=== PATIENT | female | born 1960 | race Caucasian/White ===

== ENCOUNTER 2017-09-26 07:11 | Emergency (ER) | payer SELFPAY ==
[2017-09-26 07:26] VITALS: BP 109/70
--- NOTE | 2017-09-26 07:35 | ED Physician Documentation ---
GI Bleed - HISTORIAN Historian: patient - HPI Stated Complaint: Fever/Aches Chief Complaint: Fever Additional Information: fever to 101 diarrhea onset 2 days ago cough just dont feel good Onset: days ago (2) Timing: gradual onset, still present, worse Severity: mild, moderate - Associated Symptoms Description of Stools: diarrhea Abdominal Pain: mild - ROS CONST: fever, chills CVS/RESP: denies: chest pain, shortness of breath EYES/ENT: denies: problems with vision, sore throat MS: none NEURO/PSYCH: denies: headache (ca thryoid) - PAST HX Past History: other (ca thryoid) Surgeries/Procedures: other (thryoid) Allergies/Adverse Reactions: Allergies Allergy/AdvReac Type Severity Reaction Status Date / Time No Known Allergies Allergy Verified 09/26/17 07:26 - SOCIAL HX Smoking History: less than 1 pack/day Alcohol Use: none Drug Use: none - FAMILY HX Family History: none - VITAL SIGNS Vital Signs: Vital Signs Temp Pulse Resp BP Pulse Ox 100.2 F H 103 H 16 109/70 96 09/26/17 07:20 09/26/17 07:20 09/26/17 07:20 09/26/17 07:20 09/26/17 07:20 - REVIEWED ASSESSMENTS Nursing Assessment Reviewed: Yes Vitals Reviewed: Yes ED Results Lab/Radiology - Lab Results Lab Results: Lab Results 09/26/17 09/26/17 09/26/17 08:15 08:05 08:05 WBC 2.20 K/ul L K/ul (4.00-12.00) RBC 4.18 M/ul M/ul (3.90-5.20) Hgb 13.5 g/dL g/dL (12.0-16.0) Hct 39.1 % % (34.5-46.5) MCV 93.5 fl fl (80.0-100.0) MCH 32.3 pg pg (28.0-34.0) MCHC 34.5 g/dL g/dL (30.0-36.0) RDW 13.7 % % (11.3-14.3) Plt Count 52 K/mm3 L K/mm3 (130-400) Seg Neutrophils % 39 % % (39-79) Band Neutrophils % 36 % H % (0-12) Lymphocytes % 15 % L % (16-50) Monocytes % 9 % % (0-11) Eosinophils % 0 % % (0-7) Basophils % 0 % % (0-2) Metamyelocytes % 0 % % (0-0) Myelocytes % 0 % % (0-0) Nucleated RBCs 2 % H % (0-0) Reactive Lymphocytes 1 % % (0-5) Sodium 135 mmol/L L mmol/L (136-145) Potassium 4.0 mmol/L mmol/L (3.5-5.1) Chloride 102 mmol/L mmol/L (98-107) Carbon Dioxide 24 mmol/L mmol/L (22-30) BUN 12 mg/dL mg/dL (7-17) Creatinine 0.80 mg/dL mg/dL (0.52-1.04) Estimated Creat Clear 59 Est GFR ( Amer) > 60 (60 - ) Est GFR (Non-Af Amer) > 60 (60 - ) Glucose 105 mg/dL mg/dL (74-106) Calcium 8.9 mg/dL mg/dL (8.4-10.2) Total Bilirubin 0.5 mg/dL mg/dL (0.2-1.3) AST 123 U/L H U/L (15-46) ALT 120 U/L H U/L (13-69) Alkaline Phosphatase 155 U/L H U/L (38-126) Total Protein 7.0 g/dL g/dL (6.3-8.2) Albumin 4.2 g/dL g/dL (3.5-5.0) Lipase 92 U/L U/L (23-300) Urine Color Yue (YELLOW) Urine Appearance Clear (CLEAR) Urine pH 6.0 (5.0 - 8.0) Ur Specific [place] >=1.030 H (1.010-1.030) Urine Protein 2+ mg/dL H mg/dL (NEGATIVE) Urine Ketones Negative mg/dL mg/dL (NEGATIVE) Urine Occult Blood 3+ H (NEGATIVE) Urine Nitrite Negative (NEGATIVE) Urine Bilirubin 1+ H (NEGATIVE) Urine Urobilinogen 1.0 Eu Eu (0.2-1.0) Ur Leukocyte Esterase Negative (NEGATIVE) Urine Glucose Negative mg/dL mg/dL (NEGATIVE) - Orders Orders: ED Orders Category Date Time Status Place IV Lock 1T Care 06/07/18 07:38 Active ABD SERIES PA CHEST [RAD] Stat Exams 09/26/17 Ordered CBC/PLATELET/DIFF Routine Lab 09/26/17 08:05 Completed CMP Routine Lab 09/26/17 08:05 Completed HEPATITIS PANEL-COMP I Stat Lab 09/26/17 07:38 Received LIPASE Routine Lab 09/26/17 08:05 Completed RBC/PLATELET MORPHOLOGY Routine Lab 09/26/17 08:05 Completed UA MACRO DIP ONLY Routine Lab 09/26/17 08:15 Completed 0.9 % Sodium Chloride [Normal Saline] 1,000 ml Med 09/26/17 07:38 Discontinued IV Q1H Chem Sticks Med 09/26/17 10:00 Discontinued 1 each MC CHEMQ Abdominal Pain Physical Exam - Physical Exam General Appearance: mild distress, anxious EENT: eye inspection normal NECK: normal inspection RESPIRATORY: no resp distress, chest non-tender, breath sounds normal CVS: reg rate & rhythm, heart sounds normal ABDOMEN: soft, non-tender SKIN: warm/dry. No: cyanosis, diaphoresis, jaundice, mottled EXTREMITIES: non-tender, normal range of motion, no edema NEURO: oriented X3, motor nml, sensation nml, mood/affect nml Vital Signs: Vital Signs Temp Pulse Resp BP Pulse Ox 100.2 F H 103 H 16 109/70 96 09/26/17 07:20 09/26/17 07:20 09/26/17 07:20 09/26/17 07:20 09/26/17 07:20 Discharge Clincal Impression: vital gastroenteritis Referrals: Laney Witt, OIL RECOVERY OPERATOR [NURSE PRACTITIONER] - 2 Days Comments: pt ate feels better no nausea now will home rest bal nutrition f/u w/pcp or rt ed prn Condition: Good Disposition: 01 HOME, SELF-CARE Decision to Admit: NO Decision Time: 11:08
[2017-09-26] MEDS ORDERED: 0.9 % SODIUM CHLORIDE 1,000 ML IV ONE (07:38)
[2017-09-26 08:16] LABS: MEAN CORPUSCULAR HEMOGLOBIN 32.3 pg (28.0-34.0); MEAN CORPUSCULAR VOLUME 93.5 fl (80.0-100.0)
[2017-09-26 08:30] LABS: eGFR (African) > 60; eGFR (Non-African) > 60
[2017-09-26 08:53] LABS: BASOPHILS % 0 % (0-2); EOSINOPHILS % 0 % (0-7); MONOCYTES % 9 % (0-11); SEGMENTED NEUTROPHILS % 39 % (39-79)
[2017-09-26 10:31] LABS: APPEARANCE,URINE CLEAR (CLEAR); COLOR,URINE AMBER (YELLOW); OCCULT BLOOD,URINE 3+ (NEGATIVE)
--- NOTE | 2017-09-26 22:53 | Diagnostic Imaging Report ---
[facility] [address] [facility].[address] [id number] Report Submission Date: Sep 26, 2017 8:33:01 AM CDT Patient Study Name: NIDIA UMANA Date: Sep 26, 2017 8:10:06 AM CDT Modality Type: DX Gender: F Description: CHEST,ABDOMEN : 62 Institution: [facility] Physician: AD SAMS Examination: Obstruction series History: ABD SERIES/PA CHEST, COUGH, FEVER, FATIGUE SINCE 09/24/17, SMOKER (Hx) Findings: 3 views obtained of the chest and abdomen. No abnormal dilation of the large or small bowel. Air and stool throughout the large bowel. No suspicious calcification projecting over the renal fossa or the lower pelvic region. Splenic region calcifications. Pelvic phleboliths. Osseous structures are appropriate for age. No parenchymal infiltrative process. Hilar granuloma. Impression: No focal infiltrative process. No obstruction. No suspicious calcifications by plain film sensitivity. Electronically signed on Sep 26, 2017 8:33:01 AM CDT by: Fredo HORTON
== END 2017-09-26 11:30 | disposition home or self-care (01) ==
LOC: ED 07:11
DX: A08.4 Viral intestinal infection, unspecified (principal)
CPT/HCPCS: 74022; 80053; 81002; 83690; 85025; 86704; 86706; 86709; 86803; 87340; J7030; 96365; 99284; S1016

== ENCOUNTER 2017-10-15 11:50 | Outpatient (CLI) | payer SELFPAY ==
[2017-10-15 12:07] LABS: MEAN CORPUSCULAR HEMOGLOBIN 31.6 pg (28.0-34.0); MEAN CORPUSCULAR VOLUME 93.9 fl (80.0-100.0)
[2017-10-15 12:25] LABS: BASOPHILS % 1 % (0-2); MONOCYTES % 9 % (0-11); SEGMENTED NEUTROPHILS % 43 % (39-79)
[2017-10-15 12:44] LABS: eGFR (African) > 60; eGFR (Non-African) > 60
== END 2017-10-15 11:52 ==
LOC: LAB 11:50
PROVIDERS: ATTEND Family Medicine
DX: D72.819 Decreased white blood cell count, unspecified (principal); Z51.81 Encounter for therapeutic drug level monitoring; M79.1 Myalgia; E03.9 Hypothyroidism, unspecified
CPT/HCPCS: 36415; 80053; 84443; 85025; 85651

== ENCOUNTER 2019-01-14 09:15 | Emergency (ER) | payer OTHER ==
[2019-01-14] MEDS: ASPIRIN 81 MG CHEW TAB PO ONE (09:35)
[2019-01-14 09:36] LABS: BASOPHILS % 0.4 % (0.0-1.5); NEUTROPHILS # 3.5 # k/uL (1.4-7.7)
[2019-01-14 09:56] LABS: eGFR (Non-African) > 60
--- NOTE | 2019-01-14 10:09 | ED Physician Documentation ---
Chest Pain - HISTORIAN Historian: patient - HPI Stated Complaint: Chest pain Chief Complaint: Chest Pain Onset: days ago (4) Last known Well Date: 01/10/19 Last Known Well Time: 08:00 Last known Well Code/Unknown Code: Known Context: activity, exertion Severity: moderate Quality: sharp, stabbing Chest Pain Radiation: other (lateral chest) Chest Pain Signs/Symptoms: denies: nausea, vomiting, diaphoresis, cool extremities, dizziness, dyspnea, tachypnea, tachycardia, hypotension, palpitations, weakness, other Worsened By: movement Relieved By: nothing, other (tried OTC antacids with no relief. ) Further Comments: yes (58 year old female patient presents with a 4 day history of chest wall pain with radiation to lateral chest wall. Patient denies SOB, cough, epigastric pain, nausea, vomiting, fever or chills. No previous history of cardiac disease. Smoker for 30 years - 1 ppd.) - ROS CONST: none MS/LYMPH: none GI/: none EYES/ENT: none SKIN/ENDO: none NEURO/PSYCH: none - PAST HX CT risk factors: no pertinent history DVT/PE Risk Factors: none TAD/AAA risk factors: none Neuro deficit: none GI disease: none Lung disease: none Allergies/Adverse Reactions: Allergies Allergy/AdvReac Type Severity Reaction Status Date / Time No Known Drug Allergies Allergy Verified 01/14/19 09:28 Home Medications: Ambulatory Orders Medication Instructions Recorded Ketorolac Tromethamine [Toradol] 10 mg PO TID #15 tablet 01/14/19 - SOCIAL HX Smoking History: cigarettes (1 ppd) - FAMILY HX Family HX: denies: none - VITAL SIGNS Vital Signs: Vital Signs Temp Pulse Resp BP Pulse Ox 66 15 145/87 94 01/14/19 09:57 01/14/19 09:15 01/14/19 09:15 01/14/19 09:57 - REVIEWED ASSESSMENTS Nursing Assessment Reviewed: Yes Vitals Reviewed: Yes Progress - Additional EKG/XRAY/Consults EKG #2: rhythm (SR, no acute findings) ED Results Lab/Radiology - Lab Results Lab Results: Lab Results 01/14/19 01/14/19 09:27 09:27 WBC 6.80 K/ul K/ul (4.00-12.00) RBC 4.26 M/ul M/ul (3.90-5.20) Hgb 14.1 g/dL g/dL (11.5-16.0) Hct 41.4 % % (34.5-46.5) MCV 97.0 fl fl (80.0-100.0) MCH 33.0 pg pg (28.0-34.0) MCHC 34.0 g/dL g/dL (30.0-36.0) RDW 12.6 % % (11.3-14.3) Plt Count 260 K/mm3 K/mm3 (130-400) Neut % (Auto) 52.0 % % (39.0-79.0) Lymph % (Auto) 38.9 % % (16.0-50.0) [place] % (Auto) 7.5 % % (0.0-11.0) Eos % (Auto) 1.2 % % (0.0-6.8) Baso % (Auto) 0.4 % % (0.0-1.5) Neut # (Auto) 3.5 # k/uL # k/uL (1.4-7.7) Lymph # (Auto) 2.6 # k/uL # k/uL (0.6-4.0) [place] # (Auto) 0.5 # k/uL # k/uL (0.0-0.9) Eos # (Auto) 0.1 # k/uL # k/uL (0.0-0.6) Baso # (Auto) 0.0 # k/uL # k/uL (0.0-0.5) Sodium 140 mmol/L mmol/L (137-145) Potassium 4.0 mmol/L mmol/L (3.5-5.1) Chloride 112 mmol/L H mmol/L (98-107) Carbon Dioxide 26 mmol/L mmol/L (22-30) Anion Gap 6.0 BUN 12 mg/dL mg/dL (7-17) Creatinine 0.93 mg/dL mg/dL (0.52-1.04) Estimated Creat Clear 54 Est GFR ( Amer) > 60 (60 - ) Est GFR (Non-Af Amer) > 60 (60 - ) Glucose 105 mg/dL mg/dL (74-106) Calcium 9.3 mg/dL mg/dL (8.4-10.2) Total Bilirubin 0.7 mg/dL mg/dL (0.2-1.3) AST 35 U/L U/L (15-46) ALT 15 U/L U/L (13-69) Alkaline Phosphatase 70 U/L U/L (38-126) Creatine Kinase 105 U/L U/L (30-135) CK-MB (CK-2) 1.5 ng/mL ng/mL (0.0-5.6) Troponin I < 0.012 ng/mL L ng/mL (0.012-0.034) Total Protein 7.8 g/dL g/dL (6.3-8.2) Albumin 4.6 g/dL g/dL (3.5-5.0) - Orders Orders: ED Orders Category Date Time Status Continuous EKG monitoring Q30M Care 01/14/19 09:27 Active Continuous Pulse Oximetry Q30M Care 01/14/19 09:[address] IV Lock 1T Care 01/14/19 09:27 Active CHEST 2VIEW [RAD] Stat Exams 01/14/19 Ordered CBC/PLATELET/DIFF Stat Lab 01/14/19 09:27 Completed CKMB Stat Lab 01/14/19 09:27 Completed CMP Stat Lab 01/14/19 09:27 Completed CREATINE KINASE Stat Lab 01/14/19 09:27 Completed TROPONIN I Stat Lab 01/14/19 09:27 Completed Aspirin [Reese] Med 01/14/19 09:26 Discontinued 324 mg PO NOW ONE Ketorolac Tromethamine [Toradol] Med 01/14/19 10:05 Once 30 mg IVP NOW ONE Oxygen Daily Oxygen 01/14/19 09:30 Ordered EKG WITH COMPARISON Stat Ther 01/14/19 09:27 Ordered Chest Pain Physical Exam - EXAM General Appearance: no acute distress, alert EENT: eye inspection normal, ENT inspection normal, pharynx normal, no signs of dehydration, KVNG, no nystagmus, TM's nml Respiratory: no resp. distress, nml breath sounds, other (chest wall pain along left sternal border and left lateral chest wall with palpation) CVS: reg. rate & rhythm, no murmur, no gallop, no friction rub, pulses full, pulses equal Abdomen: soft, no organomegaly, normal bowel sounds, no abdominal bruit, no distension Skin: normal color, warm/dry, NR, INT, DR Extremities: non-tender, normal range of motion, no evidence of injury, no edema, J, [employer] Neuro: oriented X3, CN's nml as tested, motor nml, sensation nml, mood/affect nml Discharge Clincal Impression: Non-cardiac chest pain, Costochondritis, acute Prescriptions: Ketorolac Tromethamine [Toradol] 10 mg PO TID #15 tablet Referrals: Ciara Casas MD [Primary Care Provider] - 2 Days Additional Instructions: Non cardiac chest pain Rest You may use Tylenol every 4hour as needed for pain. Limit your dose to less than 4 G per day. Do not take ibuprofen, aleve, naproxen or any other NSAID while you are on toradol. Make an follow Er appointment with your primary care doctor in the next 3-5 days. Return to the ER if you have Chest pain with shortness of breath, nausea and sweating all over. Or pain radiating to jaws or shoulders. Condition: Stable Disposition: 01 HOME, SELF-CARE Decision to Admit: NO Decision Time: 10:07
[2019-01-14] MEDS: KETOROLAC TROMETHAMINE 30 MG/1ML VIAL IVP ONE (10:10)
[2019-01-14 10:30] VITALS: BP 124/83
--- NOTE | 2019-01-14 12:02 | Diagnostic Imaging Report ---
DARIELA CHOWDHURY (INSTRUCTOR TRAFFIC SAFETY) - ER [facility] [address] [address] Report Submission Date: Jan 14, 2019 9:46:30 AM CDT Patient Study Name: NIDIA UMANA Date: Jan 14, 2019 9:23:05 AM CDT Modality Type: DX Gender: F Description: CHEST 2VIEW : 62 Institution: [facility] Physician: DARIELA CHOWDHURY (NILS) - ER Examination: PA and lateral chest. History: Evaluate lung garcia. Comparison exam: None available for direct review. Findings: PA and lateral views of the chest demonstrates a normal cardiac and mediastinal silhouette. Aortic arch vascular calcifications. Left hilar granuloma. No focal infiltrate. No blunting of the costophrenic margins. Osseous structures are appropriate for age. Impression: No acute appearing pulmonary process. Electronically signed on Jan 14, 2019 9:46:30 AM CDT by: Fredo HORTON
== END 2019-01-14 10:28 | disposition home or self-care (01) ==
LOC: ED 09:15
DX: M94.0 Chondrocostal junction syndrome [Tietze] (principal)
CPT/HCPCS: 71046; 80053; 82550; 82553; 84484; 85025; 93005; 96374; 99283; 99284; J1885; S1016